=== PATIENT | female | born 1965 | race Caucasian/White ===

== ENCOUNTER 2019-08-13 12:56 | Inpatient (IN) | payer MEDICAID ==
[~2019-08-13] VITALS: Ht 165.1 cm; Wt 70.3 kg
[~2019-08-13 12:56] MED LIST: BP MED; TRAZ150T62 PO
--- NOTE | 2019-08-13 13:30 | NUR ---
THIS IS A 54 YO F W/ C/O N/V AND GENERAL ABD PAIN 12/07 X1 WEEK. PT REPORTS SHE WAS SEEN TWICE AT [facility] AND TREATED FOR GASTRIC PARESIS W/ NO RELIEF. PT TACHYCARDIC AND HYPERTENSIVE, OTHER VS WDL. PT CONNECTED TO MONITORING, CALL LIGHT IN REACH AND FAMILY AT BEDSIDE. MED REC DONE. AWAITING ORDERS.
[2019-08-13] MEDS ORDERED: PROM25TA10 PO (13:40)
[2019-08-13] MEDS ORDERED: METO10TA82 PO (13:40)
[2019-08-13] MEDS ORDERED: LISI-167 PO (13:40)
[2019-08-13] MEDS ORDERED: ONDA4TAB7 PO (13:40)
[2019-08-13] MEDS ORDERED: SIMV40TA20 PO (13:40)
[2019-08-13] MEDS ORDERED: PRED20TA PO (13:40)
[2019-08-13] MEDS ORDERED: DICY20TA3 PO (13:40)
[2019-08-13] MEDS ORDERED: TOPI50TA8 PO (13:40)
[2019-08-13] MEDS ORDERED: ONDANSETRON 2MG/ML, 2ML ONE (13:54)
[2019-08-13] MEDS ORDERED: HYDROmorphone 1 MG/ML, 1ML INJ ONE ×2 (13:54→15:01)
[2019-08-13] MEDS: HYDROmorphone 2 MG/ML, 1ML IVPush PRN ×2 (13:57→15:03)
[2019-08-13] MEDS: SODIUM CHLORIDE 0.9% 1,000 ML IV ONE ×2 (13:57→18:07)
--- NOTE | 2019-08-13 14:00 | NUR ---
PIV STARTED, LABS DRAWN. PT MEDICATED PER EMAR.
[2019-08-13 14:24] LABS: BASOPHILS # (AUTO) 0.05 x10^3/uL (0-0.1); BASOPHILS % (AUTO) 0 % (0-1); EOSINOPHILS # (AUTO) 0.09 x10^3/uL (0-0.4); EOSINOPHILS % (AUTO) 1 % (1-7); LYMPHOCYTES # (AUTO) 2.32 x10^3/uL (1-3.4); LYMPHOCYTES % (AUTO) 15 % (22-44); MD NO; MEAN CORPUSCULAR HEMOGLOBIN 29.1 pg (27.0-34.8); MEAN CORPUSCULAR HGB CONC 33.5 g/dL (32.4-35.8); MEAN CORPUSCULAR VOLUME 86.8 fL (80-100); MEAN PLATELET VOLUME 8.4 fL (7.4-10.4); MONOCYTES # (AUTO) 0.56 x10^3/uL (0.2-0.8); MONOCYTES % (AUTO) 4 % (2-9); NEUTROPHILS # (AUTO) 12.82 x10^3/uL (1.8-6.8); NEUTROPHILS % (AUTO) 81 % (42-75); PLATELET COUNT 328 x10^3/uL (130-400); RED BLOOD COUNT 5.89 x10^6/uL (3.82-5.3); RED CELL DISTRIBUTION WIDTH 13.3 % (9.6-15.2)
[2019-08-13 14:26] LABS: ALBUMIN 4.3 g/dL (3.4-5.0); ANION GAP 11 mmol/L (5-15); CALCIUM 9.9 mg/dL (8.5-10.1); CHLORIDE 95 mmol/L (98-107)
[2019-08-13 14:31] LABS: ALANINE AMINOTRANSFERASE 30 U/L (12-78); ALKALINE PHOSPHATASE 85 U/L (45-117); BILIRUBIN,TOTAL 0.9 mg/dL (0.2-1.0); CREATININE 1.12 mg/dL (0.55-1.02); TOTAL PROTEIN 8.9 g/dL (6.4-8.2)
--- NOTE | 2019-08-13 14:36 | NUR ---
BREAK RN: PT OOB AMBULATED TO BATHROOM, UPRIGHT STEADY GAIT. URINE SAMPLE COLLECTED AND SENT TO LAB. PT RTD TO ROOM W/O INCIDENT. PILLOW AND WARM BLANKET PROVIDED. CALL LIGHT W/I REACH. PAIN NOW 08/07, NAD NOTED. BP IMPROVED, NOW 107/74, IVF INFUSING W/O DIFFICULTY
[2019-08-13 14:51] LABS: MICROSCOPIC INDICATED
[2019-08-13] MEDS ORDERED: ONDANSETRON 2MG/ML, 2ML IVPush ONE (15:00)
[2019-08-13] MEDS ORDERED: SODIUM CHLORIDE 0.9% 1,000ML IVBOLUS ONE (15:00)
[2019-08-13] MEDS ORDERED: SODIUM CHLORIDE FLUSH 10ML SYR IVF ONE (15:00)
[2019-08-13] MEDS ORDERED: SODIUM CHLORIDE FLUSH 10ML SYR IVF PRN (15:00)
[2019-08-13] MEDS ORDERED: TRULICITY (15:10)
[2019-08-13] MEDS ORDERED: NOVOLOG (15:10)
--- NOTE | 2019-08-13 15:25 | NUR ---
REPORT GIVEN TO ELI FUNK. PT IS READY FOR TRANSPORT AT THIS TIME.
[2019-08-13 15:49] VITALS: BP 105/67
[2019-08-13 16:21] VITALS: BP 105/67
[2019-08-13] MEDS ORDERED: D5%-0.45NACL+KCL 20MEQ 1,000 ML IV SCH (16:27)
[2019-08-13] MEDS ORDERED: PROMETHAZINE 25 MG/ML, 1ML IM PRN (16:30)
[2019-08-13] MEDS ORDERED: METOCLOPRAMIDE 5 MG/ML, 2ML IVPush PRN (16:30)
[2019-08-13] MEDS ORDERED: ONDANSETRON 2MG/ML, 2ML IVPush PRN (16:30)
[2019-08-13] MEDS: INSULIN LISPRO 100 UNITS/ML, PEN SQ-INSULIN SCH ×2 (16:30→21:03)
[2019-08-13] MEDS ORDERED: LABETALOL 5MG/ML, 20ML IVPush PRN (16:30)
[2019-08-13] MEDS ORDERED: ACETAMINOPHEN 325 MG TABLET PO PRN (16:30)
[2019-08-13] MEDS ORDERED: hydrALAzine 20 MG/ML, 1ML IVPush PRN (16:30)
[2019-08-13] MEDS: SODIUM CHLORIDE 0.9% 1,000 ML IV SCH ×5 (18:17→23:24)
[2019-08-13] MEDS: morphine SULFATE 10 MG/ML, 1ML IVPush PRN ×2 (18:19→23:24)
[2019-08-13 18:42] VITALS: BP 110/74
[2019-08-13] MEDS: INSULIN GLARGINE 100 UNITS/ML, PEN SQ-INSULIN SCH (21:01)
[2019-08-13] MEDS: TRAZODONE 150MG TABLET PO SCH (21:01)
[2019-08-13] MEDS: SIMVASTATIN 40 MG TABLET PO SCH (21:02)
[2019-08-13] MEDS: HEPARIN 5,000 UNITS/ML, 1ML SQ SCH (22:00)
[2019-08-14 00:46] VITALS: BP 145/85
[2019-08-14] MEDS: morphine SULFATE 10 MG/ML, 1ML IVPush PRN ×2 (04:49→10:19)
[2019-08-14] MEDS: HEPARIN 5,000 UNITS/ML, 1ML SQ SCH ×3 (05:21→22:00)
[2019-08-14 05:34] LABS: MEAN CORPUSCULAR HEMOGLOBIN 29.1 pg (27.0-34.8); MEAN CORPUSCULAR HGB CONC 32.8 g/dL (32.4-35.8); MEAN CORPUSCULAR VOLUME 88.7 fL (80-100); MEAN PLATELET VOLUME 8.1 fL (7.4-10.4); PLATELET COUNT 255 x10^3/uL (130-400); RED BLOOD COUNT 4.59 x10^6/uL (3.82-5.3); RED CELL DISTRIBUTION WIDTH 13.1 % (9.6-15.2)
[2019-08-14 05:36] LABS: ANION GAP 5 mmol/L (5-15); CALCIUM 8.1 mg/dL (8.5-10.1); CHLORIDE 107 mmol/L (98-107)
[2019-08-14 05:39] LABS: ALANINE AMINOTRANSFERASE 22 U/L (12-78); ALKALINE PHOSPHATASE 54 U/L (45-117); BILIRUBIN,TOTAL 0.5 mg/dL (0.2-1.0); CREATININE 0.83 mg/dL (0.55-1.02); TOTAL PROTEIN 6.2 g/dL (6.4-8.2)
[2019-08-14 05:58] LABS: BASOPHILS # (AUTO) 0.03 x10^3/uL (0-0.1); BASOPHILS % (AUTO) 0 % (0-1); EOSINOPHILS # (AUTO) 0.18 x10^3/uL (0-0.4); EOSINOPHILS % (AUTO) 2 % (1-7); LYMPHOCYTES % (AUTO) 44 % (22-44); MD SCAN; MONOCYTES # (AUTO) 0.88 x10^3/uL (0.2-0.8); MONOCYTES % (AUTO) 7 % (2-9); NEUTROPHILS # (AUTO) 5.83 x10^3/uL (1.8-6.8); NEUTROPHILS % (AUTO) 47 % (42-75)
[2019-08-14] MEDS ORDERED: PANTOPRAZOLE 40 MG IV IVPush SCH (07:30)
[2019-08-14 07:49] VITALS: BP 158/81
[2019-08-14] MEDS: SODIUM CHLORIDE 0.9% 1,000 ML IV SCH ×2 (07:49→16:08)
[2019-08-14] MEDS: INSULIN LISPRO 100 UNITS/ML, PEN SQ-INSULIN SCH ×4 (07:59→22:12)
[2019-08-14] MEDS ORDERED: LISINOPRIL 10 MG TABLET PO SCH (09:00)
[2019-08-14] MEDS: LISINOPRIL 10 MG TABLET PO SCH (12:27)
[2019-08-14 15:13] VITALS: BP 155/79
[2019-08-14] MEDS: OXYcodone/APAP 5/325MG TABLET PO PRN ×2 (16:07→22:11)
[2019-08-14 19:18] VITALS: BP 158/94
[2019-08-14] MEDS: TRAZODONE 150MG TABLET PO SCH (22:11)
[2019-08-14] MEDS: SIMVASTATIN 40 MG TABLET PO SCH (22:11)
[2019-08-14] MEDS: INSULIN GLARGINE 100 UNITS/ML, PEN SQ-INSULIN SCH (22:12)
[2019-08-15 01:09] VITALS: BP 166/85
[2019-08-15] MEDS: SODIUM CHLORIDE 0.9% 1,000 ML IV SCH (04:03)
[2019-08-15 05:14] LABS: BASOPHILS # (AUTO) 0.03 x10^3/uL (0-0.1); BASOPHILS % (AUTO) 1 % (0-1); EOSINOPHILS # (AUTO) 0.11 x10^3/uL (0-0.4); EOSINOPHILS % (AUTO) 2 % (1-7); LYMPHOCYTES # (AUTO) 2.75 x10^3/uL (1-3.4); LYMPHOCYTES % (AUTO) 40 % (22-44); MD NO; MEAN CORPUSCULAR HGB CONC 33.4 g/dL (32.4-35.8); MEAN CORPUSCULAR VOLUME 86.8 fL (80-100); MEAN PLATELET VOLUME 7.8 fL (7.4-10.4); MONOCYTES # (AUTO) 0.62 x10^3/uL (0.2-0.8); MONOCYTES % (AUTO) 9 % (2-9); NEUTROPHILS % (AUTO) 49 % (42-75); PLATELET COUNT 209 x10^3/uL (130-400); RED BLOOD COUNT 4.24 x10^6/uL (3.82-5.3); RED CELL DISTRIBUTION WIDTH 12.9 % (9.6-15.2)
[2019-08-15 05:20] LABS: ALBUMIN 2.7 g/dL (3.4-5.0); ANION GAP 4 mmol/L (5-15); CALCIUM 8.1 mg/dL (8.5-10.1); CHLORIDE 108 mmol/L (98-107)
[2019-08-15 05:24] LABS: ALANINE AMINOTRANSFERASE 25 U/L (12-78); ALKALINE PHOSPHATASE 52 U/L (45-117); BILIRUBIN,TOTAL 0.4 mg/dL (0.2-1.0); CREATININE 0.69 mg/dL (0.55-1.02); TOTAL PROTEIN 5.7 g/dL (6.4-8.2)
[2019-08-15] MEDS: PANTOPRAZOLE 40MG TABLET PO SCH (05:38)
[2019-08-15] MEDS: HEPARIN 5,000 UNITS/ML, 1ML SQ SCH ×3 (05:38→21:32)
[2019-08-15 07:50] VITALS: BP 175/105
[2019-08-15] MEDS: OXYcodone/APAP 5/325MG TABLET PO PRN ×2 (08:16→21:30)
[2019-08-15] MEDS: INSULIN LISPRO 100 UNITS/ML, PEN SQ-INSULIN SCH ×4 (08:16→21:32)
[2019-08-15] MEDS: LISINOPRIL 10 MG TABLET PO SCH (08:16)
[2019-08-15 08:47] VITALS: BP 147/74
[2019-08-15] MEDS ORDERED: POTASSIUM CHLORIDE 40 MEQ in SODIUM CHLORIDE 0.9% 500 ML IV ONE (09:00)
[2019-08-15 11:09] VITALS: BP 154/87
[2019-08-15 12:30] VITALS: BP 139/91
[2019-08-15 20:35] VITALS: BP 153/90
[2019-08-15] MEDS ORDERED: INSULIN GLARGINE 100 UNITS/ML, PEN SQ-INSULIN SCH (21:00)
[2019-08-15] MEDS: TRAZODONE 150MG TABLET PO SCH (21:31)
[2019-08-15] MEDS: SIMVASTATIN 40 MG TABLET PO SCH (21:31)
[2019-08-16 01:09] VITALS: BP 135/85
[2019-08-16] MEDS: HEPARIN 5,000 UNITS/ML, 1ML SQ SCH (05:42)
[2019-08-16] MEDS: PANTOPRAZOLE 40MG TABLET PO SCH (05:44)
[2019-08-16 06:25] VITALS: BP 154/91
[2019-08-16] MEDS: INSULIN LISPRO 100 UNITS/ML, PEN SQ-INSULIN SCH ×2 (07:48→11:39)
[2019-08-16] MEDS ORDERED: LISINOPRIL 10 MG TABLET PO SCH (09:00)
[2019-08-16] MEDS ORDERED: AMLODIPINE 5 MG TABLET PO SCH (09:30)
[2019-08-16] MEDS: OXYcodone/APAP 5/325MG TABLET PO PRN (09:51)
[2019-08-16 12:13] VITALS: BP 138/87
[2019-08-16] MEDS ORDERED: INSU100I11 SQ-INSULIN (13:30)
[2019-08-16] MEDS ORDERED: AMLO-150 PO (13:30)
[2019-08-16] MEDS ORDERED: LISI-167 PO (13:30)
[2019-08-16] MEDS ORDERED: INSU100I13 SQ-INSULIN (13:30)
== END 2019-08-16 15:11 | disposition home or self-care (01) | DRG 391 ==
LOC: ED 14:13 → EDIP 14:47 → 3N 15:36 → DCLOUNGE 08-16 14:50
PROVIDERS: ADMIT Internal Medicine; ATTEND Internal Medicine
DX: K29.70 Gastritis, unspecified, without bleeding (principal); N17.0 Acute kidney failure with tubular necrosis; E46 Unspecified protein-calorie malnutrition; E87.1 Hypo-osmolality and hyponatremia; D72.829 Elevated white blood cell count, unspecified; D75.1 Secondary polycythemia; E11.65 Type 2 diabetes mellitus with hyperglycemia; E86.0 Dehydration; E86.1 Hypovolemia; G89.29 Other chronic pain; I10 Essential (primary) hypertension; J44.9 Chronic obstructive pulmonary disease, unspecified; F32.9 Major depressive disorder, single episode, unspecified; F41.9 Anxiety disorder, unspecified; Z90.49 Acquired absence of other specified parts of digestive tract; Z68.25 Body mass index [BMI] 25.0-25.9, adult; Z79.4 Long term (current) use of insulin; Z79.899 Other long term (current) drug therapy; Z83.3 Family history of diabetes mellitus
CPT/HCPCS: 36415; 74176; 80053; 81001; 82962; 83036; 83690; 85025; 93005; 96374; 96375; 96376; G0378; J1170; J1644; J2405; J3480; C9113; J0360; J1815; J2270; J2765; J7030; J7040

== ENCOUNTER 2020-03-23 08:17 | Inpatient (IN) | payer MEDICAID ==
[~2020-03-23] VITALS: Ht 167.6 cm; Wt 80.6 kg
[~2020-03-23 08:17] MED LIST changes: +AMLO-150 PO; +DICY20TA3 PO; +INSU100I11 SQ-INSULIN; +INSU100I13 SQ-INSULIN; +LISI-167 PO; +METO10TA82 PO; +NOVOLOG; +ONDA4TAB7 PO; +PRED20TA PO; +PROM25TA10 PO; +SIMV40TA20 PO; +TOPI50TA8 PO; +TRULICITY
--- NOTE | 2020-03-23 08:24 | NUR ---
Pt brought in by pee from home with chief complaint of abd pain, n./v since tuesday. PT recently here for pneumonia, on abx. GUEST SERVICE AGENT zofran po and phenergan sup.
[2020-03-23] MEDS ORDERED: FAMOTIDINE 20 MG/2 ML IV ONE (08:30)
[2020-03-23] MEDS ORDERED: ONDANSETRON 2MG/ML, 2ML IVPush ONE (08:30)
[2020-03-23] MEDS ORDERED: SODIUM CHLORIDE FLUSH 10ML SYR IVF ONE (08:30)
[2020-03-23] MEDS ORDERED: ONDANSETRON 2MG/ML, 2ML ONE (08:37)
[2020-03-23] MEDS ORDERED: MORPHINE SULFATE 4 MG/ML, 1ML ONE ×2 (08:38→09:12)
[2020-03-23] MEDS ORDERED: FAMOTIDINE 20 MG/2 ML ONE (08:38)
[2020-03-23] MEDS: MORPHINE SULFATE 4 MG/ML, 1ML IVPush PRN ×2 (08:41→09:17)
--- NOTE | 2020-03-23 08:55 | NUR ---
PT to imaging
[2020-03-23 08:59] LABS: MEAN CORPUSCULAR HEMOGLOBIN 29.4 pg (27.0-34.8); MEAN CORPUSCULAR HGB CONC 34.1 g/dL (32.4-35.8); PLATELET COUNT 276 x10^3/uL (130-400); RED BLOOD COUNT 5.86 x10^6/uL (3.82-5.3); RED CELL DISTRIBUTION WIDTH 13.2 % (9.6-15.2)
[2020-03-23] MEDS ORDERED: SODIUM CHLORIDE 0.9% 1,000ML IVBOLUS ONE (09:00)
[2020-03-23 09:11] LABS: ALANINE AMINOTRANSFERASE 40 U/L (12-78); ALBUMIN 3.8 g/dL (3.4-5.0); ANION GAP 10 mmol/L (5-15); CALCIUM 10.4 mg/dL (8.5-10.1); CHLORIDE 100 mmol/L (98-107); CREATININE 1.37 mg/dL (0.55-1.02)
[2020-03-23 09:14] LABS: ALKALINE PHOSPHATASE 104 U/L (45-117); BILIRUBIN,TOTAL 0.7 mg/dL (0.2-1.0)
[2020-03-23] MEDS ORDERED: OMNIPAQUE 350 MG/ML, 100ML BOTTLE ONE (09:15)
[2020-03-23 09:22] LABS: ACETONE, SERUM Moderate(40mg/dL) (Negative)
--- NOTE | 2020-03-23 09:22 | NUR ---
ER MD Mejia at bedside for assessment. Pt to CT.
[2020-03-23 09:26] LABS: MD YES
[2020-03-23 09:27] LABS: LYMPH#(MANUAL) 3.78 x10^3/uL (1-3.4); LYMPHS% (MANUAL) 15 % (22-44); MONOS#(MANUAL) 1.26 x10^3/uL (0.3-2.7); MONOS% (MANUAL) 5 % (2-9); SEG#(MANUAL) 20.16 x10^3/uL (1.8-6.8); SEGS% (MANUAL) 80 % (42-75)
[2020-03-23 09:28] LABS: <PLATELET ESTIMATE> ADEQUATE; <PLT MORPHOLOGY> NORMAL PLT MORPH; <RBC MORPHOLOGY> NORMAL
[2020-03-23] MEDS ORDERED: METOCLOPRAMIDE 5 MG/ML, 2ML IVPush ONE (09:30)
[2020-03-23] MEDS ORDERED: METOCLOPRAMIDE 5 MG/ML, 2ML ONE (09:56)
[2020-03-23 10:06] LABS: MICROSCOPIC INDICATED
--- NOTE | 2020-03-23 10:10 | NUR ---
PT ambulated to bathroom, back resting in bed, family at bedside.
--- NOTE | 2020-03-23 10:31 | NUR ---
Report called to mary Em aware of transport.
[2020-03-23] MEDS ORDERED: LABETALOL 5MG/ML, 20ML ONE (11:25)
[2020-03-23] MEDS: LACTATED RINGERS 1,000 ML IV SCH ×2 (11:55→23:53)
[2020-03-23] MEDS ORDERED: LABETALOL 5MG/ML, 20ML IVPush PRN (12:00)
[2020-03-23] MEDS ORDERED: AMLODIPINE 5 MG TABLET PO SCH (12:00)
[2020-03-23] MEDS ORDERED: ONDANSETRON 2MG/ML, 2ML IVPush PRN (12:00)
[2020-03-23] MEDS ORDERED: PANTOPRAZOLE 40 MG IV IVPush SCH (12:00)
[2020-03-23] MEDS: morphine SULFATE 10 MG/ML, 1ML IVPush PRN ×3 (12:09→20:46)
[2020-03-23] MEDS: ENOXAPARIN 40 MG/0.4 ML SQ SCH (12:12)
[2020-03-23] MEDS: METOCLOPRAMIDE 5 MG/ML, 2ML IVPush SCH ×3 (12:12→23:53)
[2020-03-23 12:21] VITALS: BP 186/121
[2020-03-23] MEDS: INSULIN LISPRO 100 UNITS/ML, PEN SQ-INSULIN SCH ×3 (12:29→20:47)
[2020-03-23] MEDS: ACETAMINOPHEN 325 MG TABLET PO PRN (12:33)
[2020-03-23 12:56] VITALS: BP 96/63
[2020-03-23] MEDS ORDERED: cloniDINE 0.1MG PATCH TD SCH (13:00)
[2020-03-23 14:10] VITALS: BP 120/69
[2020-03-23] MEDS: SUCRALFATE 1 GM/10 ML UDC PO SCH ×3 (15:57→20:45)
[2020-03-23] MEDS: METRONIDAZOLE PMX 500MG/100ML 100 ML IV SCH ×2 (15:59→22:11)
[2020-03-23] MEDS: CEFTRIAXONE PMX 1GM/50ML 50 ML IV SCH (18:26)
[2020-03-23 19:35] VITALS: BP 130/76
[2020-03-23] MEDS: ESOMEPRAZOLE 40 MG IV IVPush SCH (20:45)
[2020-03-23] MEDS: SIMVASTATIN 40 MG TABLET PO SCH (20:45)
[2020-03-23] MEDS: INSULIN GLARGINE 100 UNITS/ML, PEN SQ-INSULIN SCH (20:47)
[2020-03-23] MEDS: TRAZODONE 150MG TABLET PO SCH (22:10)
[2020-03-24 00:12] VITALS: BP 104/65
[2020-03-24] MEDS: morphine SULFATE 10 MG/ML, 1ML IVPush PRN ×5 (01:46→18:56)
[2020-03-24] MEDS: METRONIDAZOLE PMX 500MG/100ML 100 ML IV SCH (05:39)
[2020-03-24] MEDS: METOCLOPRAMIDE 5 MG/ML, 2ML IVPush SCH ×4 (05:39→23:54)
[2020-03-24 05:56] LABS: BASOPHILS % (AUTO) 1 % (0-1); EOSINOPHILS % (AUTO) 0 % (1-7); LYMPHOCYTES % (AUTO) 33 % (22-44); MEAN CORPUSCULAR HEMOGLOBIN 28.9 pg (27.0-34.8); MEAN PLATELET VOLUME 7.7 fL (7.4-10.4); MONOCYTES % (AUTO) 7 % (2-9); NEUTROPHILS % (AUTO) 59 % (42-75); PLATELET COUNT 215 x10^3/uL (130-400); RED BLOOD COUNT 4.37 x10^6/uL (3.82-5.3); RED CELL DISTRIBUTION WIDTH 12.9 % (9.6-15.2)
[2020-03-24 06:01] LABS: MD NO
[2020-03-24 06:07] LABS: ANION GAP 4 mmol/L (5-15); CALCIUM 8.1 mg/dL (8.5-10.1); CHLORIDE 105 mmol/L (98-107)
[2020-03-24 06:08] LABS: CREATININE 0.81 mg/dL (0.55-1.02)
[2020-03-24] MEDS ORDERED: POTASSIUM CHLORIDE 20 MEQ in SODIUM CHLORIDE 0.9% 250 ML IV ONE (06:30)
[2020-03-24] MEDS: INSULIN LISPRO 100 UNITS/ML, PEN SQ-INSULIN SCH ×4 (07:00→21:19)
[2020-03-24 07:04] VITALS: BP 128/80
[2020-03-24] MEDS: SENNA/DOCUSATE TABLET PO SCH (07:28)
[2020-03-24] MEDS: SUCRALFATE 1 GM/10 ML UDC PO SCH ×4 (07:28→21:20)
[2020-03-24] MEDS: AMLODIPINE 2.5 MG TABLET PO SCH (07:29)
[2020-03-24] MEDS: LISINOPRIL 20 MG TABLET PO SCH (07:29)
[2020-03-24] MEDS: ACETAMINOPHEN 325 MG TABLET PO PRN (07:46)
[2020-03-24] MEDS: INSULIN GLARGINE 100 UNITS/ML, PEN SQ-INSULIN SCH ×2 (07:50→21:20)
[2020-03-24] MEDS ORDERED: LISINOPRIL 20 MG TABLET PO SCH (09:00)
[2020-03-24] MEDS: ALBUTEROL HFA 90 MCG/SPRAY INH SCH ×3 (09:07→21:21)
[2020-03-24] MEDS: ESOMEPRAZOLE 40 MG IV IVPush SCH ×2 (09:07→21:20)
[2020-03-24] MEDS: GUAIFENESIN ER 600 MG TABLET PO SCH ×2 (09:08→21:20)
[2020-03-24] MEDS: ENOXAPARIN 40 MG/0.4 ML SQ SCH (11:36)
[2020-03-24 14:08] VITALS: BP 120/75
[2020-03-24] MEDS: CEFTRIAXONE PMX 1GM/50ML 50 ML IV SCH (16:05)
[2020-03-24] MEDS: OXYcodone 5 MG/5 ML ORAL.SOL UDC PO PRN (16:58)
[2020-03-24 19:49] VITALS: BP 119/68
[2020-03-24] MEDS: TRAZODONE 150MG TABLET PO SCH (21:20)
[2020-03-24] MEDS: SIMVASTATIN 40 MG TABLET PO SCH (21:20)
[2020-03-25 00:21] VITALS: BP 171/93
[2020-03-25 00:42] VITALS: BP 127/73
[2020-03-25] MEDS: ALBUTEROL HFA 90 MCG/SPRAY INH SCH ×4 (03:00→20:56)
[2020-03-25] MEDS: morphine SULFATE 10 MG/ML, 1ML IVPush PRN ×3 (04:59→20:57)
[2020-03-25] MEDS: METOCLOPRAMIDE 5 MG/ML, 2ML IVPush SCH ×2 (06:09→11:42)
[2020-03-25 06:24] LABS: BASOPHILS % (AUTO) 1 % (0-1); EOSINOPHILS % (AUTO) 1 % (1-7); LYMPHOCYTES % (AUTO) 43 % (22-44); MD NO; MEAN CORPUSCULAR HEMOGLOBIN 29.5 pg (27.0-34.8); MEAN CORPUSCULAR HGB CONC 34.7 g/dL (32.4-35.8); MEAN PLATELET VOLUME 8.2 fL (7.4-10.4); MONOCYTES % (AUTO) 8 % (2-9); NEUTROPHILS % (AUTO) 48 % (42-75); PLATELET COUNT 199 x10^3/uL (130-400); RED BLOOD COUNT 4.51 x10^6/uL (3.82-5.3); RED CELL DISTRIBUTION WIDTH 12.9 % (9.6-15.2)
[2020-03-25 06:25] LABS: ANION GAP 5 mmol/L (5-15); CALCIUM 8.4 mg/dL (8.5-10.1); CHLORIDE 107 mmol/L (98-107)
[2020-03-25 06:26] LABS: CREATININE 0.71 mg/dL (0.55-1.02)
[2020-03-25 07:40] VITALS: BP 134/99
[2020-03-25] MEDS: SUCRALFATE 1 GM/10 ML UDC PO SCH ×4 (07:52→20:56)
[2020-03-25] MEDS: SENNA/DOCUSATE TABLET PO SCH (07:53)
[2020-03-25] MEDS: GUAIFENESIN ER 600 MG TABLET PO SCH ×2 (07:53→20:56)
[2020-03-25] MEDS: OXYcodone 5 MG/5 ML ORAL.SOL UDC PO PRN ×3 (07:53→23:33)
[2020-03-25] MEDS: AMLODIPINE 2.5 MG TABLET PO SCH (07:54)
[2020-03-25] MEDS: ESOMEPRAZOLE 40 MG IV IVPush SCH ×2 (07:54→20:56)
[2020-03-25] MEDS: LISINOPRIL 20 MG TABLET PO SCH (07:54)
[2020-03-25] MEDS: INSULIN LISPRO 100 UNITS/ML, PEN SQ-INSULIN SCH ×4 (08:03→20:57)
[2020-03-25] MEDS: INSULIN GLARGINE 100 UNITS/ML, PEN SQ-INSULIN SCH ×2 (08:04→20:58)
[2020-03-25] MEDS ORDERED: ONDANSETRON 2MG/ML, 2ML IVPush SCH (11:00)
[2020-03-25] MEDS ORDERED: ESCI20TA10 PO (11:26)
[2020-03-25] MEDS: ENOXAPARIN 40 MG/0.4 ML SQ SCH (11:39)
[2020-03-25] MEDS ORDERED: ESCITALOPRAM 10MG TABLET PO SCH (12:00)
[2020-03-25] MEDS ORDERED: MAGNESIUM CITRATE 300ML ORAL SOL PO PRN (15:00)
[2020-03-25] MEDS: CEFTRIAXONE PMX 1GM/50ML 50 ML IV SCH (16:25)
[2020-03-25 19:16] VITALS: BP 145/92
[2020-03-25] MEDS ORDERED: SUCR1ORA5 PO (19:40)
[2020-03-25] MEDS ORDERED: PANT40TA3 PO (19:48)
[2020-03-25] MEDS: SIMVASTATIN 40 MG TABLET PO SCH (20:56)
[2020-03-25] MEDS ORDERED: INSULIN GLARGINE 100 UNITS/ML, PEN SQ-INSULIN SCH (21:00)
[2020-03-25] MEDS: TRAZODONE 150MG TABLET PO SCH (22:09)
[2020-03-26 00:28] VITALS: BP 153/81
[2020-03-26] MEDS: ALBUTEROL HFA 90 MCG/SPRAY INH SCH ×3 (03:00→15:00)
[2020-03-26] MEDS: OXYcodone 5 MG/5 ML ORAL.SOL UDC PO PRN ×3 (04:04→13:50)
[2020-03-26] MEDS: morphine SULFATE 10 MG/ML, 1ML IVPush PRN ×2 (05:14→10:16)
[2020-03-26] MEDS: INSULIN LISPRO 100 UNITS/ML, PEN SQ-INSULIN SCH ×3 (07:00→16:47)
[2020-03-26] MEDS ORDERED: INSU100I13 SQ-INSULIN (07:09)
[2020-03-26] MEDS: SENNA/DOCUSATE TABLET PO SCH (09:00)
[2020-03-26] MEDS ORDERED: ESCITALOPRAM 10MG TABLET PO SCH (09:00)
[2020-03-26] MEDS: ESOMEPRAZOLE 40 MG IV IVPush SCH (09:04)
[2020-03-26] MEDS: GUAIFENESIN ER 600 MG TABLET PO SCH (09:04)
[2020-03-26] MEDS: LISINOPRIL 20 MG TABLET PO SCH (09:05)
[2020-03-26] MEDS: AMLODIPINE 2.5 MG TABLET PO SCH (09:05)
[2020-03-26] MEDS: SUCRALFATE 1 GM/10 ML UDC PO SCH ×3 (09:05→16:41)
[2020-03-26 09:07] VITALS: BP 149/94
[2020-03-26] MEDS: INSULIN GLARGINE 100 UNITS/ML, PEN SQ-INSULIN SCH (09:20)
[2020-03-26] MEDS ORDERED: SIME80TA16 PO (10:30)
[2020-03-26] MEDS: ENOXAPARIN 40 MG/0.4 ML SQ SCH (11:32)
[2020-03-26] MEDS ORDERED: PROCHLORPERAZINE 5 MG/ML, 2ML IV ONE (13:30)
[2020-03-26 14:50] VITALS: BP 158/89
== END 2020-03-26 17:34 | disposition home or self-care (01) | DRG 392 ==
LOC: ED 09:47 → INTOOBSV 10:00 → EDIP 10:00 → OBSVTOIN 10:00 → SUATTDRO 10:05 → 3N 11:07
PROVIDERS: ADMIT Hospitalist; ATTEND Internal Medicine
DX: K21.9 Gastro-esophageal reflux disease without esophagitis (principal); E87.1 Hypo-osmolality and hyponatremia; N17.9 Acute kidney failure, unspecified; D75.1 Secondary polycythemia; E11.43 Type 2 diabetes mellitus with diabetic autonomic (poly)neuropathy; E78.5 Hyperlipidemia, unspecified; E86.0 Dehydration; F32.9 Major depressive disorder, single episode, unspecified; F41.9 Anxiety disorder, unspecified; F51.04 Psychophysiologic insomnia; I10 Essential (primary) hypertension; J45.909 Unspecified asthma, uncomplicated; K31.84 Gastroparesis; J40 Bronchitis, not specified as acute or chronic; E11.65 Type 2 diabetes mellitus with hyperglycemia; K58.9 Irritable bowel syndrome, unspecified; Z83.3 Family history of diabetes mellitus; Z86.61 Personal history of infections of the central nervous system; Z87.01 Personal history of pneumonia (recurrent); Z90.49 Acquired absence of other specified parts of digestive tract; Z88.8 Allergy status to other drugs, medicaments and biological substances
CPT/HCPCS: 36415; 74018; 74022; 74177; 78264; 80048; 80053; 81001; 82010; 82330; 82800; 82962; 83036; 83690; 83735; 84100; 84145; 84443; 85025; 87040; 93005; 96374; 96375; 96376; 99285; G0378; J0696; J1650; J2405; J3480; Q9967; A9541; C9113; C9898; J0780; J1815; J2270; J2765; J7030; J7050; J7120

== ENCOUNTER 2020-07-12 16:09 | Emergency (ER) | payer MEDICAID ==
[~2020-07-12] VITALS: Ht 165.1 cm; Wt 80.0 kg
[~2020-07-12 16:09] MED LIST changes: -DICY20TA3 PO; +DICY20TA4 PO; +ESCI20TA10 PO; +PANT40TA3 PO; +SIME80TA16 PO; +SUCR1ORA5 PO
[2020-07-12] MEDS ORDERED: PROMETHAZINE 25 MG/ML, 1ML ONE (16:53)
[2020-07-12] MEDS ORDERED: HALOPERIDOL 5 MG/ML ONE (16:53)
[2020-07-12] MEDS ORDERED: FAMOTIDINE 20 MG/2 ML ONE (16:54)
[2020-07-12] MEDS ORDERED: FAMOTIDINE 20 MG/2 ML IVPush ONE (17:00)
[2020-07-12] MEDS ORDERED: PROMETHAZINE 25 MG/ML, 1ML IM ONE (17:00)
[2020-07-12] MEDS ORDERED: HALOPERIDOL 5 MG/ML IV ONE (17:00)
[2020-07-12] MEDS ORDERED: SODIUM CHLORIDE 0.9% 1,000ML IVBOLUS ONE (17:00)
--- NOTE | 2020-07-12 17:08 | NUR ---
PT PLACED ON ALL ROOM MONITORING. MEDS GIVEN PER ERP ORDER, CONFIRMED WITH PA THAT HALDO IV OK AND HEART MONITOR SHOWING ST 110 CONVERTING TO NSR, RATE OF 80 AFTER MEDICATION. VS UPDATED IN COMPUTER. PT AWARE OF NEED FOR UA. PT STATES SHE WENT JUST PRIOR. CALL LIGHT WITHIN REACH, FAMILY AT BS.
[2020-07-12 17:18] LABS: BASOPHILS % (AUTO) 0 % (0-1); EOSINOPHILS % (AUTO) 0 % (1-7); LYMPHOCYTES % (AUTO) 7 % (22-44); MEAN CORPUSCULAR HEMOGLOBIN 29.3 pg (27.0-34.8); MEAN CORPUSCULAR HGB CONC 34.8 g/dL (32.4-35.8); MEAN PLATELET VOLUME 8.1 fL (7.4-10.4); MONOCYTES % (AUTO) 2 % (2-9); NEUTROPHILS % (AUTO) 91 % (42-75); PLATELET COUNT 352 x10^3/uL (130-400); RED BLOOD COUNT 5.88 x10^6/uL (3.82-5.3); RED CELL DISTRIBUTION WIDTH 13.6 % (9.6-15.2)
[2020-07-12 17:19] LABS: ALANINE AMINOTRANSFERASE 33 U/L (12-78); ALBUMIN 4.3 g/dL (3.4-5.0); ANION GAP 15 mmol/L (5-15); CALCIUM 10.1 mg/dL (8.5-10.1); CHLORIDE 98 mmol/L (98-107); CREATININE 1.12 mg/dL (0.55-1.02)
[2020-07-12 17:22] LABS: ALKALINE PHOSPHATASE 130 U/L (45-117); BILIRUBIN,TOTAL 0.5 mg/dL (0.2-1.0); TOTAL PROTEIN 9.2 g/dL (6.4-8.2)
[2020-07-12 17:52] LABS: MD SCAN
--- NOTE | 2020-07-12 17:52 | NUR ---
PT SLEEPING, NAD, NO VOMITING SINCE MEDICATION GIVEN. VSS/UPDATED IN COMPUTER. ALL RESULTS EXCEPT URINE BACK. PT FOR RECHECK.
--- NOTE | 2020-07-12 18:03 | NUR ---
PT USED BEDPAN, URINE COLLECTED/SENT TO LAB.
[2020-07-12 18:14] LABS: MICROSCOPIC AUTO
--- NOTE | 2020-07-12 18:50 | NUR ---
REPORT FROM SARAH FUNK
[2020-07-12] MEDS ORDERED: MORPHINE SULFATE 4 MG/ML, 1ML IVPush PRN (19:00)
[2020-07-12] MEDS ORDERED: MORPHINE SULFATE 4 MG/ML, 1ML ONE (19:04)
--- NOTE | 2020-07-12 19:27 | NUR ---
POST MEDICATION PAIN/NAUSEA COMPLETELY RESOLVED ERP MADE AWARE
[2020-07-12 19:52] VITALS: BP 148/83
--- NOTE | 2020-07-12 19:53 | NUR ---
DISCHARGED HOME IN CARE OF FAMILY AFTER POC REVIEWED WITH SUCCESSFUL TEACH BACK
== END 2020-07-12 19:56 | disposition home or self-care (01) ==
LOC: ED 17:19
DX: E11.43 Type 2 diabetes mellitus with diabetic autonomic (poly)neuropathy (principal); K31.84 Gastroparesis; R11.2 Nausea with vomiting, unspecified; D72.829 Elevated white blood cell count, unspecified; I10 Essential (primary) hypertension
CPT/HCPCS: 36415; 71045; 74021; 80053; 81001; 83690; 85025; 96372; 96374; 96375; 99284; J1630; J2270; J2550; J7030; 99282

== ENCOUNTER 2020-11-04 11:59 | Emergency (ER) | payer MEDICAID ==
[~2020-11-04] VITALS: Ht 165.1 cm; Wt 72.6 kg
--- NOTE | 2020-11-04 12:42 | NUR ---
C/O VOMITING X1 DAY, ABD PAIN. HX DM, AND GASTROPARESIS. PT PLACED ON ALL MONITORS. FALL PRECAUTIONS IN PLACE, CALL LIGTH WITHIN REACH.
[2020-11-04 13:07] LABS: BASOPHILS % (AUTO) 1 % (0-1); EOSINOPHILS % (AUTO) 0 % (1-7); LYMPHOCYTES % (AUTO) 11 % (22-44); MEAN CORPUSCULAR HGB CONC 34.1 g/dL (32.4-35.8); MEAN PLATELET VOLUME 7.5 fL (7.4-10.4); MONOCYTES % (AUTO) 8 % (2-9); NEUTROPHILS % (AUTO) 81 % (42-75); PLATELET COUNT 334 x10^3/uL (130-400); RED BLOOD COUNT 5.45 x10^6/uL (3.82-5.3); RED CELL DISTRIBUTION WIDTH 13.5 % (9.6-15.2)
[2020-11-04 13:21] LABS: ALANINE AMINOTRANSFERASE 26 U/L (12-78); ALBUMIN 3.6 g/dL (3.4-5.0); ANION GAP 8 mmol/L (5-15); CALCIUM 9.3 mg/dL (8.5-10.1); CHLORIDE 92 mmol/L (98-107); CREATININE 1.59 mg/dL (0.55-1.02)
[2020-11-04 13:23] LABS: ALKALINE PHOSPHATASE 97 U/L (45-117); BILIRUBIN,TOTAL 0.6 mg/dL (0.2-1.0); TOTAL PROTEIN 8.3 g/dL (6.4-8.2)
[2020-11-04] MEDS ORDERED: SODIUM CHLORIDE 0.9% 1,000 ML IV ONE (13:30)
[2020-11-04] MEDS ORDERED: METOCLOPRAMIDE 5 MG/ML, 2ML IVPush ONE (13:30)
[2020-11-04] MEDS ORDERED: SODIUM CHLORIDE 0.9% 1,000ML IVBOLUS ONE (13:30)
[2020-11-04] MEDS ORDERED: METOCLOPRAMIDE 5 MG/ML, 2ML ONE (13:32)
[2020-11-04] MEDS ORDERED: MORPHINE SULFATE 4 MG/ML, 1ML ONE ×2 (13:32→15:05)
[2020-11-04] MEDS: MORPHINE SULFATE 4 MG/ML, 1ML IVPush PRN ×2 (13:42→15:07)
[2020-11-04 14:32] LABS: MICROSCOPIC INDICATED
[2020-11-04] MEDS ORDERED: POTASSIUM CHLORIDE 20 MEQ TAB.ER.PRT ONE (14:58)
[2020-11-04] MEDS ORDERED: POTASSIUM CHLORIDE 20 MEQ TAB.ER.PRT PO ONE (15:00)
[2020-11-04 15:02] VITALS: BP 158/96
== END 2020-11-04 15:59 | disposition home or self-care (01) ==
LOC: ED 12:00
DX: E10.43 Type 1 diabetes mellitus with diabetic autonomic (poly)neuropathy (principal); K31.84 Gastroparesis; I10 Essential (primary) hypertension; E87.6 Hypokalemia; R11.2 Nausea with vomiting, unspecified; E86.0 Dehydration; R00.0 Tachycardia, unspecified; Z90.49 Acquired absence of other specified parts of digestive tract; F17.200 Nicotine dependence, unspecified, uncomplicated
CPT/HCPCS: 36415; 80053; 81001; 83690; 85025; 87086; 96361; 96374; 96375; 96376; 99284; J2270; J2765; J7030

== ENCOUNTER 2020-11-07 13:56 | Emergency (ER) | payer MEDICAID ==
[~2020-11-07] VITALS: Ht 165.1 cm; Wt 70.0 kg
--- NOTE | 2020-11-07 14:42 | NUR ---
clerical adjudicator note: Pt to room from [facility].
--- NOTE | 2020-11-07 15:02 | NUR ---
PATIENT BACK IN ROOM, WARM BLANKET PROVIDED. CALL LIGHT IN REACH, NO NEEDS AT THIS TIME. AWAITING ERP ASSESSMENT.
--- NOTE | 2020-11-07 15:02 | NUR ---
PATIENT AMBULATED TO THE BATHROOM WITH STEADY GAIT, ATTEMPTING TO PROVIDE URINE SAMPLE.
[2020-11-07 15:40] LABS: MICROSCOPIC AUTO
[2020-11-07] MEDS ORDERED: [UNRECOGNIZED DRUG - REMARK] (16:18)
[2020-11-07] MEDS ORDERED: CARVEDILOL (16:19)
[2020-11-07] MEDS ORDERED: INSU100I13 INJ (16:21)
[2020-11-07 16:22] VITALS: BP 139/87
[2020-11-07] MEDS ORDERED: SODIUM CHLORIDE 0.9% 1,000ML IVBOLUS ONE (16:30)
[2020-11-07] MEDS ORDERED: HALOPERIDOL 5 MG/ML ONE (16:30)
[2020-11-07] MEDS ORDERED: HALOPERIDOL 5 MG/ML IV ONE (16:30)
[2020-11-07] MEDS ORDERED: SODIUM CHLORIDE FLUSH 10ML SYR IVF ONE (16:30)
[2020-11-07 16:36] LABS: BASOPHILS % (AUTO) 0 % (0-1); EOSINOPHILS % (AUTO) 0 % (1-7); LYMPHOCYTES % (AUTO) 6 % (22-44); MEAN CORPUSCULAR HEMOGLOBIN 29.3 pg (27.0-34.8); MEAN CORPUSCULAR HGB CONC 34.2 g/dL (32.4-35.8); MEAN PLATELET VOLUME 8.3 fL (7.4-10.4); MONOCYTES % (AUTO) 2 % (2-9); NEUTROPHILS % (AUTO) 92 % (42-75); PLATELET COUNT 268 x10^3/uL (130-400); RED BLOOD COUNT 5.02 x10^6/uL (3.82-5.3); RED CELL DISTRIBUTION WIDTH 13.5 % (9.6-15.2)
[2020-11-07 16:44] LABS: ACETONE, SERUM Small (20mg/dL) (Negative)
--- NOTE | 2020-11-07 16:45 | NUR ---
PATIENT PLACED ON TEACHER DRAMATICS, PATIENT AND FAMILY UPDATED ABOUT PLAN OF CARE, MEDICATED PER MAR.
[2020-11-07 16:50] LABS: ALANINE AMINOTRANSFERASE 28 U/L (12-78); ALBUMIN 3.1 g/dL (3.4-5.0); ANION GAP 5 mmol/L (5-15); CALCIUM 8.6 mg/dL (8.5-10.1); CHLORIDE 98 mmol/L (98-107)
[2020-11-07 16:53] LABS: ALKALINE PHOSPHATASE 93 U/L (45-117); BILIRUBIN,TOTAL 0.4 mg/dL (0.2-1.0); CREATININE 0.86 mg/dL (0.55-1.02)
--- NOTE | 2020-11-07 18:46 | NUR ---
PT ABLE TO TOLERATE PO FLUIDS. PT REPORTS SHE IS FEELING BETTER.
== END 2020-11-07 19:16 | disposition home or self-care (01) ==
LOC: ED 17:44
DX: E10.43 Type 1 diabetes mellitus with diabetic autonomic (poly)neuropathy (principal); K31.84 Gastroparesis; Z87.891 Personal history of nicotine dependence; I10 Essential (primary) hypertension
CPT/HCPCS: 36415; 80053; 81001; 82010; 83690; 85025; 96361; 96374; 99283; J1630; J7030